=== PATIENT | male | born 1995 | race Caucasian/White ===

== ENCOUNTER 2018-05-11 20:00 | Emergency (ER) | payer MEDICAID, OTHER ==
[2018-05-11] MEDS: morphine LIQ (10 MG/5 ML) CUP PO (20:44)
== END 2018-05-11 22:12 | disposition home or self-care (01) ==
LOC: FTE 20:00
DX: S02.2XXA Fracture of nasal bones, initial encounter for closed fracture (principal); F17.210 Nicotine dependence, cigarettes, uncomplicated; W18.39XA Other fall on same level, initial encounter; Y92.9 Unspecified place or not applicable
CPT/HCPCS: 70486; 99284-25